=== PATIENT | female | born 1965 | race Caucasian/White ===

== ENCOUNTER 2017-10-15 08:12 | Inpatient (IN) ==
[2017-10-15] MEDS ORDERED: SODIUM CHLORIDE 0.9% 1,000 ML IV STA (08:43)
[2017-10-15 08:53] LABS: Basophils # 0.1 10*3/uL (0.0-0.2); Basophils % 1.1 % (0.0-0.8); Eosinophils # 0.3 10*3/uL (0.0-0.87); Eosinophils % 2.4 % (0.00-10.9); Hematocrit 29.8 VOL% (35.7-47.0); Hemoglobin 9.8 GM/DL (12.0-16.0); Immature Granulocytes % 1.6 %; Immature Granulocytes Absolute 0.17 #; Lymphocytes # 2.1 10*3/uL (1.4-4.0); Lymphocytes % 19.2 % (21.3-54.2); Mean Corpuscular HGB Conc 32.9 GM/DL (32-36); Mean Corpuscular Hemoglobin 36 PG (27-34); Mean Corpuscular Volume 108.8 FL (87-102); Mean Platelet Volume 9.1 FL (9.6-12.0); Monocytes # 1.1 10*3/uL (0.11-0.8); Monocytes % 10.3 % (1.7-12.7); Neutrophils % 65.4 % (38.7-73.9); Platelet Count 232 T/CUMM (130-400); Red Blood Count 2.74 MC/CUMM (3.8-5.5); Red Cell Distribution Width 18.9 % (9.3-17.3); White Blood Count 10.7 T/CUMM (4-12)
[2017-10-15 08:54] LABS: Bilirubin,Total 0.4 MG/DL (0.2-1.0); Calcium 7.2 MG/DL (8.5-10.1); Osmolality,Calculated 286.7 MOS/KG (273-304); Potassium 3.3 MMOL/L (3.5-5.1); Total Protein 6.2 G/DL (6.4-8.3)
[2017-10-15 09:09] LABS: Apearance,Urine CLEAR (Clear); Bilirubin,Urine Negative (Negative); Blood, Urine Negative (Negative); Glucose,Urine (UA) Negative (Negative); Ketones,Urine Negative (Negative); Mucus,Urine Occasional /LPF (Occasional); Nitrite,Urine Negative (Negative); Protein,Urine Negative; RBC,Urine 1 /HPF (0-4); Squamous Epithelial Cell,Urine Occasional /HPF (0-10); Urine Color Yellow (Yellow); Urine Specific Gravity 1.014 (1.001-1.035); Urine Urobilinogen < 2.0 EU/DL (0.2-1.0); WBC,Urine 7 /HPF (0-6)
[2017-10-15 09:19] LABS: Barbiturates Screen,Urine Negative (Negative); Benzodiazepines Screen,Urine Negative (Negative); Cannabinoid Screen,Urine Negative (Negative); Opiate Screen,Urine Negative (Negative); Phencyclidine Screen,Urine Negative (Negative)
[2017-10-15] MEDS ORDERED: ACETAMINOPHEN 325 MG TABLET PO PRN (10:51)
[2017-10-15] MEDS ORDERED: chlordiazePOXIDE 10 MG CAPSULE PO PRN (10:55)
[2017-10-15] MEDS: SODIUM CHLORIDE 0.9% 1,000 ML IV SCH ×2 (12:15→19:58)
[2017-10-15] MEDS: LEVOFLOXACIN INJ 500 MG in PREMIX 1 EACH IV SCH (12:15)
[2017-10-15 13:37] LABS: Albumin 2.9 G/DL (3.4-5.0); Bilirubin,Direct 0.32 MG/DL (0.0-0.20); Bilirubin,Indirect 0.1 MG/DL (0.0-1.0); Bilirubin,Total 0.4 MG/DL (0.2-1.0); Total Protein 6.2 G/DL (6.4-8.3)
[2017-10-15] MEDS: POTASSIUM CHLORIDE 20 MEQ TABLET PO PRN ×3 (13:57→21:37)
[2017-10-15] MEDS: NICOTINE 14 MG/24 HR PATCH TRANSDERM SCH (13:57)
[2017-10-15] MEDS: ONDANSETRON 4 MG/2 ML VIAL IV PRN ×2 (15:46→19:54)
[2017-10-15] MEDS: KETOROLAC 30 MG/1 ML VIAL IV PRN (19:53)
[2017-10-15] MEDS: GABAPENTIN 300 MG CAPSULE PO SCH (21:37)
[2017-10-16] MEDS: SODIUM CHLORIDE 0.9% 1,000 ML IV SCH ×4 (00:38→08:33)
[2017-10-16] MEDS: KETOROLAC 30 MG/1 ML VIAL IV PRN (06:00)
[2017-10-16 06:52] LABS: Osmolality,Calculated 273.5 MOS/KG (273-304); Potassium 3.5 MMOL/L (3.5-5.1)
[2017-10-16 07:53] VITALS: BP 163/99
[2017-10-16] MEDS: NICOTINE 14 MG/24 HR PATCH TRANSDERM SCH (08:34)
[2017-10-16] MEDS: GABAPENTIN 300 MG CAPSULE PO SCH (08:34)
[2017-10-16] MEDS ORDERED: MULTIVITAMIN (CENTRUM) TABLET PO SCH (09:00)
[2017-10-16] MEDS ORDERED: THIAMINE 200 MG/2 ML VIAL IV SCH (09:00)
[2017-10-16] MEDS ORDERED: PANTOPRAZOLE 40 MG TABLET PO SCH (09:00)
[2017-10-16] MEDS: LEVOFLOXACIN INJ 500 MG in PREMIX 1 EACH IV SCH (12:56)
== END 2017-10-16 13:46 | disposition home or self-care (01) | DRG 918 ==
LOC: EDUNIT# → EDBD → N.ED 08:12 → N.EDINP 12:36 → N.2E 13:09
PROVIDERS: ADMIT Family Medicine; ATTEND Family Medicine